=== PATIENT | male | born 1985 | race Caucasian/White ===

== ENCOUNTER 2017-09-04 17:29 | Emergency (ER) | payer BC ==
[2017-09-04] MEDS ORDERED: Lidocaine 1% 20 ML MDV INJECT ONE (17:53)
[2017-09-04] MEDS ORDERED: Diphtheria,Pertussis(Acell),Tetanus Vaccine 0.5 ML Syringe IM ONE (17:53)
--- NOTE | 2017-09-04 18:48 | EDM.PDOC ---
ED HPI GENERAL MEDICAL PROBLEM - General Chief Complaint: Laceration Stated Complaint: LACERATION LT HAND Time Seen by Provider: 09/04/17 17:40 Source of Information: Reports: Patient History Limitations: Reports: No Limitations - History of Present Illness INITIAL COMMENTS - FREE TEXT/NARRATIVE: HISTORY AND PHYSICAL: History of present illness: Patient is a 31-year-old male who presents to the emergency room today with complaints of laceration to the left hand. He was cleaning a fish with a knife when it slipped and caught the dorsal surface of the left hand. Unsure of his last tetanus update. Review of systems: As per history of present illness and below otherwise all systems reviewed and negative. Past medical history: As per history of present illness and as reviewed below otherwise noncontributory. Surgical history: As per history of present illness and as reviewed below otherwise noncontributory. Social history: No reported history of drug or alcohol abuse. Family history: As per history of present illness and as reviewed below otherwise noncontributory. Physical exam: General: Well-developed and well-nourished 31-year-old male. Alert and oriented. Nontoxic appearing and in no acute distress. HEENT: Atraumatic, normocephalic, pupils equal and reactive bilaterally, negative for conjunctival pallor or scleral icterus, mucous membranes moist, throat clear, neck supple, nontender, trachea midline. No drooling or trismus noted. No meningeal signs Lungs: Clear to auscultation, breath sounds equal bilaterally, chest nontender. Heart: S1S2, regular rate and rhythm without overt murmur Abdomen: Soft, nondistended, nontender. Negative for masses or hepatosplenomegaly. Negative for costovertebral tenderness. Pelvis: Stable nontender. Genitourinary: Deferred. Rectal: Deferred. Skin: 2 cm laceration to the dorsal surface of the left hand. Otherwise skin is intact, warm, dry. No lesions or rashes noted. Extremities: Atraumatic, negative for cords or calf pain. Neurovascular unremarkable. Neuro: Awake, alert, oriented. Cranial nerves II through XII unremarkable. Cerebellum unremarkable. Motor and sensory unremarkable throughout. Exam nonfocal. Notes: Patient declines the hand x-ray. The 2 cm laceration to left hand was cleansed with chlorhexidine and sterile water. 1% lidocaine was used to anesthetize the area. Sterile and customary procedures were done. 4-0 nylon, #7 interrupted sutures. Patient tolerated well. Due to the patient having working with fish and dirty knife I will place him on Keflex 500 mg twice a day 7 days. Supportive care measures were reviewed. Patient voices understanding and is agreeable to plan of care. He denies any further questions at this time. Diagnostics: [] Therapeutics: 1% lidocaine Impression: Laceration, left hand Plan: 1. Please keep the area clean and dry. Monitor for signs of infection. Take the antibiotic as prescribed. 2. Appears to be removed in 6-8 days. 3. Follow-up with your primary caregiver in the next 1-2 days. Return to the ED as needed and as discussed. Definitive disposition and diagnosis as appropriate pending reevaluation and review of above. - Related Data Allergies Allergy/AdvReac Type Severity Reaction Status Date / Time No Known Allergies Allergy Verified 09/04/17 17:51 Home Meds: Home Meds . [No Known Home Meds] 09/04/17 [History] Past Medical History - Past Health History Medical/Surgical History: Denies Medical/Surgical History Respiratory History: Reports: Asthma Gastrointestinal History: Reports: Hepatitis, Other (See Below) Other Gastrointestinal History: Completed treatment for hepatitis C, no longer positive - Infectious Disease History Infectious Disease History: Reports: Hepatitis C - Past Surgical History Musculoskeletal Surgical History: Reports: Other (See Below) Social & Family History - Family History Family Medical History: Noncontributory - Tobacco Use Smoking Status *Q: Never Smoker Second Hand Smoke Exposure: No - Caffeine Use Caffeine Use: Reports: Other - Recreational Drug Use Recreational Drug Use: No ED ROS GENERAL - Review of Systems Review Of Systems: ROS reveals no pertinent complaints other than HPI. ED EXAM, SKIN/RASH Exam: See Below (See Dictation) ED SKIN PROCEDURES - Laceration/Wound Repair Left Hand Lac/Wound length In cm: 2 Appearance: Subcutaneous, Linear Distal NVT: Neuro & Vascular Intact, No Tendon Injury Anesthetic Type: Local Local Anesthesia - Lidocaine (Xylocaine): 1% Plain Local Anesthetic Volume: 4cc Skin Prep: Chlorhexidine (Hibiciens), Saline Saline Irrigation (cc's): 20 Exploration/Debridement/Repair: Wound Explored, No Foreign Material Found Closed with: Sutures Suture Size: 4-0 # of Sutures: 7 Suture Type: Interrupted Sterile Dressing Applied: Provider Tetanus Status Addressed: Yes Complications: No Course - Vital Signs Last Recorded V/S: Last Vital Signs Temp 97.1 F 09/04/17 17:51 Pulse 97 09/04/17 17:51 Resp 18 09/04/17 17:51 BP 149/94 H 09/04/17 17:51 Pulse Ox 97 09/04/17 17:51 - Orders/Labs/Meds Orders: Active Orders 24 hr Category Date Time Status Vaccines to be Administered [RC] PER UNIT ROUTINE Care 09/04/17 17:53 Ordered Meds: Medications Discontinued Medications Generic Name Dose Route Start Last Admin Trade Name Freq PRN Reason Stop Dose Admin Diphtheria/Tetanus/Acell Pertussis 0.5 ml 09/04/17 17:53 09/04/17 18:09 Adacel IM 09/04/17 17:54 0.5 ml .ONCE ONE Administration Lidocaine HCl 20 ml 09/04/17 17:53 09/04/17 18:08 Xylocaine 1% INJECT 09/04/17 17:54 20 ml ONETIME ONE Administration Departure - Departure Time of Disposition: 18:48 Disposition: Home, Self-Care 01 Clinical Impression: Laceration - Discharge Information Instructions: Laceration Care, Adult, [id number] Referrals: PCP,None [Primary Care Provider] - Forms: ED Department Discharge Additional Instructions: The following information is given to patients seen in the emergency department who are being discharged to home. This information is to outline your options for follow-up care. We provide all patients seen in our emergency department with a follow-up referral. The need for follow-up, as well as the timing and circumstances, are variable depending upon the specifics of your emergency department visit. If you don't have a primary care physician on staff, we will provide you with a referral. We always advise you to contact your personal physician following an emergency department visit to inform them of the circumstance of the visit and for follow-up with them and/or the need for any referrals to a consulting specialist. The emergency department will also refer you to a specialist when appropriate. This referral assures that you have the opportunity for follow-up care with a specialist. All of these measure are taken in an effort to provide you with optimal care, which includes your follow-up. Under all circumstances we always encourage you to contact your private physician who remains a resource for coordinating your care. When calling for follow-up care, please make the office aware that this follow-up is from your recent emergency room visit. If for any reason you are refused follow-up, please contact the [facility] Emergency Department at and asked to speak to the emergency department charge nurse. [facility] [address] [place] [id number] 1. Please keep the area clean and dry. Monitor for signs of infection. Take the antibiotic as prescribed. 2. Appears to be removed in 6-8 days. 3. Follow-up with your primary caregiver in the next 1-2 days. Return to the ED as needed and as discussed. - My Orders Last 24 Hours: My Active Orders 09/04/17 17:53 Vaccines to be Administered [RC] PER UNIT ROUTINE - Assessment/Plan Last 24 Hours: My Active Orders 09/04/17 17:53 Vaccines to be Administered [RC] PER UNIT ROUTINE
[2017-09-04 18:59] VITALS: BP 143/91
== END 2017-09-04 18:57 | disposition home or self-care (01) ==
LOC: MW.ED 17:29
DX: S61.412A Laceration without foreign body of left hand, initial encounter (principal); J45.909 Unspecified asthma, uncomplicated; Z23 Encounter for immunization; W26.0XXA Contact with knife, initial encounter
CPT/HCPCS: 90471; 90715; 99283-25

== ENCOUNTER 2017-09-12 15:43 | Emergency (ER) | payer BC | END 2017-09-12 15:56 | disposition left against medical advice (07) | LOC: MW.ED 15:43 | DX: Z53.21 Procedure and treatment not carried out due to patient leaving prior to being seen by health care provider (principal) ==

== ENCOUNTER 2017-10-15 14:39 | Emergency (ER) | payer OTHER, BC ==
[2017-10-15 14:51] VITALS: BP 152/66
--- NOTE | 2017-10-15 14:57 | EDM.PDOC ---
ED HPI GENERAL MEDICAL PROBLEM - General Chief Complaint: Lower Extremity Injury/Pain Stated Complaint: LT LEG HURTS Time Seen by Provider: 10/15/17 14:50 - History of Present Illness INITIAL COMMENTS - FREE TEXT/NARRATIVE: HISTORY AND PHYSICAL: History of present illness: Patient presents status post injury to his left lower extremity 2 weeks prior with direct trauma he had a small abrasion nares had some swelling does not turn in the bruising inferiorly he denies other concern Review of systems: As per history of present illness and below otherwise all systems reviewed and negative. Past medical history: As per history of present illness and as reviewed below otherwise noncontributory. Surgical history: As per history of present illness and as reviewed below otherwise noncontributory. Social history: No reported history of drug or alcohol abuse. Family history: As per history of present illness and as reviewed below otherwise noncontributory. Physical exam: Extremities: Patient has a small central area of excoriation proximally 2 mm over the initial injury of his mid tibia left a small area of induration surrounding no erythema no warmth there's some small bruising noted inferior to this area. No cords pain CMS neurovascular is unremarkable Diagnostics: X-ray left tib-fib Therapeutics: None Impression: #1 left leg injury (blunt force trauma) 2 weeks status post Definitive disposition and diagnosis as appropriate pending reevaluation and review of above. Left Lower Leg Pain Score (Numeric/FACES): 4 - Related Data Allergies Allergy/AdvReac Type Severity Reaction Status Date / Time No Known Allergies Allergy Verified 10/15/17 14:51 Home Meds: Home Meds Albuterol [Ventolin HFA] 1 puff INH Q4HR PRN 10/15/17 [History] Beclomethasone Dipropionate [Qvar] 1 puff INH Q4HR PRN 10/15/17 [History] Past Medical History - Past Health History Medical/Surgical History: Denies Medical/Surgical History Respiratory History: Reports: Asthma Gastrointestinal History: Reports: Hepatitis, Other (See Below) Other Gastrointestinal History: Completed treatment for hepatitis C, no longer positive - Infectious Disease History Infectious Disease History: Reports: Hepatitis C - Past Surgical History Musculoskeletal Surgical History: Reports: Other (See Below) Social & Family History - Family History Family Medical History: Noncontributory - Caffeine Use Caffeine Use: Reports: Other Review of Systems - Review of Systems Review Of Systems: ROS reveals no pertinent complaints other than HPI. ED EXAM, GENERAL - Physical Exam Exam: See Below (See dictation) Course - Vital Signs Last Recorded V/S: Last Vital Signs Temp 36.4 C 10/15/17 14:47 Pulse 76 10/15/17 14:47 Resp 16 10/15/17 14:47 BP 152/66 H 10/15/17 14:47 Pulse Ox 94 L 10/15/17 14:47 Departure - Departure Time of Disposition: 14:56 Disposition: Home, Self-Care 01 Condition: Good Clinical Impression: Leg injury - Discharge Information Referrals: PCP,None [Primary Care Provider] - Additional Instructions: The following information is given to patients seen in the emergency department who are being discharged to home. This information is to outline your options for follow-up care. We provide all patients seen in our emergency department with a follow-up referral. The need for follow-up, as well as the timing and circumstances, are variable depending upon the specifics of your emergency department visit. If you don't have a primary care physician on staff, we will provide you with a referral. We always advise you to contact your personal physician following an emergency department visit to inform them of the circumstance of the visit and for follow-up with them and/or the need for any referrals to a consulting specialist. The emergency department will also refer you to a specialist when appropriate. This referral assures that you have the opportunity for followup care with a specialist. All of these measure are taken in an effort to provide you with optimal care, which includes your followup. Under all circumstances we always encourage you to contact your private physician who remains a resource for coordinating your care. When calling for followup care, please make the office aware that this follow-up is from your recent emergency room visit. If for any reason you are refused follow-up, please contact the [facility] emergency department at and asked to speak to the emergency department charge nurse. Follow-up primary medical doctor as needed as discussed return as needed as discussed Motrin/Tylenol as directed
--- NOTE | 2017-10-15 15:30 | CR ---
EXAMINATION: Left tibia and fibula HISTORY: Injury COMPARISON: None TECHNIQUE: 2 views FINDINGS/IMPRESSION: There is no acute osseous abnormality, dislocation, or fracture. Bone mineraliza tion and visualized joint spaces appear preserved. No soft tissue swelling or foreign body.
== END 2017-10-15 15:32 | disposition home or self-care (01) ==
LOC: MW.ED 14:39
DX: S80.812A Abrasion, left lower leg, initial encounter (principal); X58.XXXA Exposure to other specified factors, initial encounter
CPT/HCPCS: 73590-26-LT; 73590-LT; 99282; 99283

== ENCOUNTER 2017-10-29 18:39 | Emergency (ER) | payer OTHER, BC ==
--- NOTE | 2017-10-29 18:49 | EDM.PDOC ---
ED HPI GENERAL MEDICAL PROBLEM - General Chief Complaint: Skin Complaint Stated Complaint: SORE ON LEFT LEG- POSSIBLY INFECTED Time Seen by Provider: 10/29/17 18:46 Source of Information: Reports: Patient History Limitations: Reports: No Limitations - History of Present Illness INITIAL COMMENTS - FREE TEXT/NARRATIVE: HISTORY AND PHYSICAL: History of present illness: Patient is a 31-year-old male who presents to the emergency room today with complaints of localized infection to the right weems. He states he hit his leg approximately 2 weeks ago and did have an abrasion at that time. He was seen in the emergency room on 10/15/2017 and had an x-ray. He states since that time he has had a "scab" over the site. Today he scratched the top of the "scab off" and did express a moderate amount of purulent drainage from the site. He denies any fever, chills, chest pain, cough or shortness of breath. Denies any GI or symptoms. Review of systems: As per history of present illness and below otherwise all systems reviewed and negative. Past medical history: As per history of present illness and as reviewed below otherwise noncontributory. Surgical history: As per history of present illness and as reviewed below otherwise noncontributory. Social history: No reported history of drug or alcohol abuse. Family history: As per history of present illness and as reviewed below otherwise noncontributory. Physical exam: General: Well-developed and well-nourished 31-year-old male. Alert and oriented. Nontoxic appearing and in no acute distress. HEENT: Atraumatic, normocephalic, pupils equal and reactive bilaterally, negative for conjunctival pallor or scleral icterus, mucous membranes moist, throat clear, neck supple, nontender, trachea midline. No drooling or trismus noted. No meningeal signs Lungs: Clear to auscultation, breath sounds equal bilaterally, chest nontender. Heart: S1S2, regular rate and rhythm without overt murmur Abdomen: Soft, nondistended, nontender. Negative for masses or hepatosplenomegaly. Negative for costovertebral tenderness. Pelvis: Stable nontender. Genitourinary: Deferred. Rectal: Deferred. Skin: Small circular crepitus noted with purulent drainage coming from the site. Nonfluctuant. Mild erythema surrounding the scabbed site (approx .75cm in diameter). Otherwise skin is intact, warm, dry. No lesions or rashes noted. Extremities: Atraumatic, moves all extremities, negative for cords or calf pain. Neurovascular unremarkable. Neuro: Awake, alert, oriented. Cranial nerves II through XII unremarkable. Cerebellum unremarkable. Motor and sensory unremarkable throughout. Exam nonfocal. Notes: Patient did have an x-ray on 10/15/2017 which was normal. The scab site does appear mildly erythematous surrounding the border. Patient expresses great concern that he needs an antibiotic or "infection". We will place him on Keflex twice a day 10 days. Supportive care measures were reviewed and discussed. Diagnostics: [] Therapeutics: [] Impression: Cellulitis, right weems Plan: 1. Keep the area clean and dry. Rest, ice, elevate the affected extremity 2. Tylenol and/or ibuprofen as needed for pain management. Take your antibiotic as directed. 3. Follow-up with your primary care provider in the next 1-2 days. Return to the ED as needed and as discussed. Definitive disposition and diagnosis as appropriate pending reevaluation and review of above. - Related Data Allergies Allergy/AdvReac Type Severity Reaction Status Date / Time No Known Allergies Allergy Verified 10/29/17 19:18 Home Meds: Home Meds Albuterol [Ventolin HFA] 1 puff INH Q4HR PRN 10/15/17 [History] Beclomethasone Dipropionate [Qvar] 1 puff INH Q4HR PRN 10/15/17 [History] Past Medical History - Past Health History Medical/Surgical History: Denies Medical/Surgical History Respiratory History: Reports: Asthma Gastrointestinal History: Reports: Hepatitis, Other (See Below) Other Gastrointestinal History: Completed treatment for hepatitis C, no longer positive - Infectious Disease History Infectious Disease History: Reports: Hepatitis C - Past Surgical History Musculoskeletal Surgical History: Reports: Other (See Below) Social & Family History - Family History Family Medical History: Noncontributory - Caffeine Use Caffeine Use: Reports: Other ED ROS GENERAL - Review of Systems Review Of Systems: ROS reveals no pertinent complaints other than HPI. ED EXAM, SKIN/RASH Exam: See Below (See dictation) Course - Vital Signs Last Recorded V/S: Last Vital Signs Temp 97.7 F 10/29/17 19:00 Pulse 81 10/29/17 19:00 Resp 16 06/25/18 19:00 BP 133/74 10/29/17 19:00 Pulse Ox 96 10/29/17 19:00 Departure - Departure Time of Disposition: 19:45 Disposition: Home, Self-Care 01 Clinical Impression: Cellulitis Qualifiers: Site of cellulitis: extremity Site of cellulitis of extremity: lower extremity Laterality: left Qualified Code(s): L03.116 - Cellulitis of left lower limb - Discharge Information Instructions: Cellulitis, Adult, [id number] Referrals: Cedric Doe MD [Primary Care Provider] - Forms: ED Department Discharge Additional Instructions: The following information is given to patients seen in the emergency department who are being discharged to home. This information is to outline your options for follow-up care. We provide all patients seen in our emergency department with a follow-up referral. The need for follow-up, as well as the timing and circumstances, are variable depending upon the specifics of your emergency department visit. If you don't have a primary care physician on staff, we will provide you with a referral. We always advise you to contact your personal physician following an emergency department visit to inform them of the circumstance of the visit and for follow-up with them and/or the need for any referrals to a consulting specialist. The emergency department will also refer you to a specialist when appropriate. This referral assures that you have the opportunity for follow-up care with a specialist. All of these measure are taken in an effort to provide you with optimal care, which includes your follow-up. Under all circumstances we always encourage you to contact your private physician who remains a resource for coordinating your care. When calling for follow-up care, please make the office aware that this follow-up is from your recent emergency room visit. If for any reason you are refused follow-up, please contact the [facility] Emergency Department at and asked to speak to the emergency department charge nurse. [facility] [address] [place] [id number] 1. Keep the area clean and dry. Rest, ice, elevate the affected extremity 2. Tylenol and/or ibuprofen as needed for pain management. Take your antibiotic as directed. 3. Follow-up with your primary care provider in the next 1-2 days. Return to the ED as needed and as discussed. He
[2017-10-29 19:58] VITALS: BP 126/70
== END 2017-10-29 19:50 | disposition home or self-care (01) ==
LOC: MW.ED 18:39
DX: L03.115 Cellulitis of right lower limb (principal)
CPT/HCPCS: 99282

== ENCOUNTER 2018-01-01 09:57 | Emergency (ER) | payer OTHER, BC ==
--- NOTE | 2018-01-01 10:17 | EDM.PDOC ---
ED HPI GENERAL MEDICAL PROBLEM - General Chief Complaint: Laceration Stated Complaint: work related injury right chest Time Seen by Provider: 01/01/18 10:17 Source of Information: Reports: Patient History Limitations: Reports: No Limitations - History of Present Illness INITIAL COMMENTS - FREE TEXT/NARRATIVE: HISTORY AND PHYSICAL: History of present illness: Patient is a [id number] here with a work injury. Patient states that about 1 hour prior to arrival to the ED he pinched his right breast/skin between a metal slide hammer. He states it bled quit a bit but has since resolved. He is otherwise in his usual state of health and denies anticoagulant use, chest pain , SOB, cough, fever, nausea, vomiting, diarrhea. He is UTD on tetanus (September 2017) . Review of systems: As per history of present illness and below otherwise all systems reviewed and negative. Past medical history: As per history of present illness and as reviewed below otherwise noncontributory. Surgical history: As per history of present illness and as reviewed below otherwise noncontributory. Social history: No reported history of drug or alcohol abuse. Family history: As per history of present illness and as reviewed below otherwise noncontributory. Physical exam: General: Patient sitting comfortably in no acute distress and nontoxic appearing HEENT: Atraumatic, normocephalic, pupils reactive, negative for conjunctival pallor or scleral icterus, mucous membranes moist, throat clear, neck supple, nontender, trachea midline. No meningeal signs. Lungs: Clear to auscultation, breath sounds equal bilaterally, chest nontender. Heart: S1S2, regular, negative for clicks, rubs, or overt murmur. Skin: There is a quarter sized bruise/erythema to the right breast just lateral to the areola. There is a 1cm superfical laceration with maceration skin. Not amendable to sutures or dermabond. Extremities: Atraumatic, negative for cords or calf pain. Neurovascular unremarkable. Neuro: Awake, alert, oriented. Cranial nerves II through XII unremarkable. Cerebellum unremarkable. Motor and sensory unremarkable throughout. Exam nonfocal. Notes: Diagnostics: None Therapeutics: None Prescriptions: None Impression: Ecchymosis, skin maceration Plan: 1. Keep the area clean and dry as directed 2. Follow up with primary care provider 3. Return to ED as needed as discussed Definitive disposition and diagnosis as appropriate pending reevaluation and review of above. right Nipple Pain Score (Numeric/FACES): 4 - Related Data Allergies Allergy/AdvReac Type Severity Reaction Status Date / Time No Known Allergies Allergy Verified 01/01/18 10:13 Home Meds: Home Meds Albuterol [Ventolin HFA] 1 puff INH Q4HR PRN 10/15/17 [History] Beclomethasone Dipropionate [Qvar] 1 puff INH Q4HR PRN 10/15/17 [History] Past Medical History - Past Health History Medical/Surgical History: Denies Medical/Surgical History Respiratory History: Reports: Asthma Gastrointestinal History: Reports: Hepatitis, Other (See Below) Other Gastrointestinal History: Completed treatment for hepatitis C, no longer positive - Infectious Disease History Infectious Disease History: Reports: Hepatitis C - Past Surgical History Musculoskeletal Surgical History: Reports: Other (See Below) Social & Family History - Family History Family Medical History: Noncontributory - Caffeine Use Caffeine Use: Reports: Other ED ROS GENERAL - Review of Systems Review Of Systems: ROS reveals no pertinent complaints other than HPI. ED EXAM, SKIN/RASH Exam: See Below (see dictation) Course - Vital Signs Last Recorded V/S: Last Vital Signs Temp 36.6 C 01/01/18 10:14 Pulse 81 01/01/18 10:14 Resp 15 01/01/18 10:14 BP 150/73 H 01/01/18 10:14 Pulse Ox 96 01/01/18 10:14 Departure - Departure Time of Disposition: 10:32 Disposition: Home, Self-Care 01 Condition: Good Clinical Impression: Skin maceration, Ecchymosis - Discharge Information Referrals: Cedric Doe MD [Primary Care Provider] - Forms: ED Department Discharge Additional Instructions: The following information is given to patients seen in the emergency department who are being discharged to home. This information is to outline your options for follow-up care. We provide all patients seen in our emergency department with a follow-up referral. The need for follow-up, as well as the timing and circumstances, are variable depending upon the specifics of your emergency department visit. If you don't have a primary care physician on staff, we will provide you with a referral. We always advise you to contact your personal physician following an emergency department visit to inform them of the circumstance of the visit and for follow-up with them and/or the need for any referrals to a consulting specialist. The emergency department will also refer you to a specialist when appropriate. This referral assures that you have the opportunity for follow-up care with a specialist. All of these measure are taken in an effort to provide you with optimal care, which includes your follow-up. Under all circumstances we always encourage you to contact your private physician who remains a resource for coordinating your care. When calling for follow-up care, please make the office aware that this follow-up is from your recent emergency room visit. If for any reason you are refused follow-up, please contact the [facility] Emergency Department at and asked to speak to the emergency department charge nurse. [facility] [address] [place] [id number] [id number] 1. Keep the area clean and dry as directed 2. Follow up with primary care provider 3. Return to ED as needed as discussed
[2018-01-01] MEDS ORDERED: Bacitracin Oint 28.35 GM Tube TOP ONE (10:30)
[2018-01-01 10:42] VITALS: BP 150/81
== END 2018-01-01 10:41 | disposition home or self-care (01) ==
LOC: MW.ED 09:57
DX: S21.011A Laceration without foreign body of right breast, initial encounter (principal); W23.1XXA Caught, crushed, jammed, or pinched between stationary objects, initial encounter
CPT/HCPCS: 99283

== ENCOUNTER 2018-08-10 10:20 | Emergency (ER) | payer BC, OTHER ==
--- NOTE | 2018-08-10 10:40 | EDM.PDOC ---
ED HPI GENERAL MEDICAL PROBLEM - General Chief Complaint: Back Pain or Injury Stated Complaint: BACK AND NECK PAIN Time Seen by Provider: 08/10/18 10:23 Source of Information: Reports: Patient History Limitations: Reports: No Limitations - History of Present Illness INITIAL COMMENTS - FREE TEXT/NARRATIVE: History of present illness: []Patient was swinging a sledgehammer, using a jackhammer and was hit by the [place] of a forklift his head 4 days ago complaining of midline neck pain. Taking tramadol from an old hip injury that has not been helping. Patient denies any matting, numbness or tingling or any other injuries. Review of systems: As per history of present illness and below otherwise all systems reviewed and negative. Past medical history: As per history of present illness and as reviewed below otherwise noncontributory. Surgical history: As per history of present illness and as reviewed below otherwise noncontributory. Social history: No reported history of drug or alcohol abuse. Family history: As per history of present illness and as reviewed below otherwise noncontributory. Physical exam: General: Well developed, well nourished in NAD HEENT: Atraumatic, normocephalic, pupils reactive, negative for conjunctival pallor or scleral icterus, mucous membranes moist, throat clear, neck supple, nontender, trachea midline. Lungs: Clear to auscultation, breath sounds equal bilaterally, chest nontender. Heart: S1S2, regular, negative for clicks, rubs, or JVD. Abdomen: NABS, Soft, nondistended, nontender. Negative for masses or hepatosplenomegaly. Negative for costovertebral tenderness. Pelvis: Stable nontender. Genitourinary: Deferred. Rectal: Deferred. Extremities: Atraumatic, negative for cords or calf pain. Neurovascular unremarkable. Neuro: Awake, alert, oriented. Cranial nerves II through XII unremarkable. Cerebellum unremarkable. Motor and sensory unremarkable throughout. Exam nonfocal. Skin:warm and dry Diagnostics: CT cervical spine without contrast Therapeutics: Declined pain meds ED Course: Stable Impression: Cervical strain Prescriptions: flexeril Plan: Take meds as directed, follow up with your primary care physician, return to ER if symptoms worsen or change. Definitive disposition and diagnosis as appropriate pending reevaluation and review of above. Neck/back Pain Score (Numeric/FACES): 8 - Related Data Allergies Allergy/AdvReac Type Severity Reaction Status Date / Time No Known Allergies Allergy Verified 08/10/18 10:45 Home Meds: Home Meds Albuterol [Ventolin HFA] 1 puff INH Q4HR PRN 10/15/17 [History] Cyclobenzaprine [Flexeril] 10 mg PO BID PRN #12 tab 08/10/18 [Rx] Zolpidem [Ambien] 5 mg PO ASDIRECTED PRN 08/10/18 [History] traMADol [Ultram] 50 mg PO ASDIRECTED PRN 08/10/18 [History] Past Medical History - Past Health History Medical/Surgical History: Denies Medical/Surgical History HEENT History: Reports: None Cardiovascular History: Reports: None Respiratory History: Reports: Asthma Gastrointestinal History: Reports: Hepatitis, Other (See Below) Other Gastrointestinal History: Completed treatment for hepatitis C, no longer positive Genitourinary History: Reports: None Musculoskeletal History: Reports: None Neurological History: Reports: None Psychiatric History: Reports: None Endocrine/Metabolic History: Reports: None Oncologic (Cancer) History: Reports: None Dermatologic History: Reports: None - Infectious Disease History Infectious Disease History: Reports: Hepatitis C - Past Surgical History Musculoskeletal Surgical History: Reports: Other (See Below) Social & Family History - Family History Family Medical History: Noncontributory - Caffeine Use Caffeine Use: Reports: Other ED ROS GENERAL - Review of Systems Review Of Systems: ROS reveals no pertinent complaints other than HPI. ED EXAM, UPPER BACK/NECK PAIN - Physical Exam Exam: See Below (See history of present illness) Course - Vital Signs Last Recorded V/S: Last Vital Signs Temp 98.6 F 08/10/18 10:48 Pulse 64 08/10/18 10:48 Resp 18 08/10/18 10:48 BP 143/54 H 08/10/18 10:48 Pulse Ox 96 08/10/18 10:48 Departure - Departure Time of Disposition: 11:38 Disposition: Home, Self-Care 01 Condition: Good Clinical Impression: Cervical strain Qualifiers: Encounter type: initial encounter Qualified Code(s): S16.1XXA - Strain of muscle, fascia and tendon at neck level, initial encounter - Discharge Information *PRESCRIPTION DRUG MONITORING PROGRAM REVIEWED*: No *COPY OF PRESCRIPTION DRUG MONITORING REPORT IN PATIENT NAUN: No Prescriptions: Cyclobenzaprine [Flexeril] 10 mg PO BID PRN #12 tab PRN Reason: Pain Instructions: Musculoskeletal Pain Referrals: Cedric Doe MD [Primary Care Provider] - Forms: ED Department Discharge Additional Instructions: The following information is given to patients seen in the emergency department who are being discharged to home. This information is to outline your options for follow-up care. We provide all patients seen in our emergency department with a follow-up referral. The need for follow-up, as well as the timing and circumstances, are variable depending upon the specifics of your emergency department visit. If you don't have a primary care physician on staff, we will provide you with a referral. We always advise you to contact your personal physician following an emergency department visit to inform them of the circumstance of the visit and for follow-up with them and/or the need for any referrals to a consulting specialist. The emergency department will also refer you to a specialist when appropriate. This referral assures that you have the opportunity for follow-up care with a specialist. All of these measure are taken in an effort to provide you with optimal care, which includes your follow-up. Under all circumstances we always encourage you to contact your private physician who remains a resource for coordinating your care. When calling for follow-up care, please make the office aware that this follow-up is from your recent emergency room visit. If for any reason you are refused follow-up, please contact the [facility] Emergency Department at and asked to speak to the emergency department charge nurse. Take meds as directed, follow up with your primary care physician, return to ER if symptoms worsen or change. [facility] [address] [place] [id number]
--- NOTE | 2018-08-10 11:26 | CT ---
INDICATION : Trauma. TECHNIQUE : CT scan of the cervical spine. Bone and soft tissue windows with sagittal and coronal reconstructions. FINDINGS : No significant fracture. No significant subluxation. No abnormal soft tissue mass lesions. No significant lesions are visualized within included lung whitfield. Incidental 7 millimeter calcification is seen in the right submandibular gland axial image 115 IMPRESSION : Negative for acute fracture or subluxation. Incidental right submandibular gland calcification Please note that all CT scans at this facility use dose modulation, iterative reconstruction, and/or weight-based dosing when appropriate to reduce radiation dose to as low as reasonably achievable. Dictated by Mundo Estrada MD @ Aug 10 2018 11:19AM Signed by Dr. Mundo Estrada @ Aug 10 2018 11:25AM
[2018-08-10 11:50] VITALS: BP 136/78
== END 2018-08-10 11:48 | disposition home or self-care (01) ==
LOC: MW.ED 10:20
DX: S16.1XXA Strain of muscle, fascia and tendon at neck level, initial encounter (principal); W22.8XXA Striking against or struck by other objects, initial encounter
CPT/HCPCS: 72125; 72125-26; 99283-25

== ENCOUNTER 2020-05-01 02:27 | Emergency (ER) | payer OTHER, BC ==
--- NOTE | 2020-05-01 02:28 | EDM.PDOC ---
ED HPI GENERAL MEDICAL PROBLEM - General Stated Complaint: POSSIBLE BROKEN KNUCKLE- LEFT HAND Time Seen by Provider: 05/01/20 02:28 Source of Information: Reports: Patient History Limitations: Reports: No Limitations - History of Present Illness INITIAL COMMENTS - FREE TEXT/NARRATIVE: 34-year-old male past medical history depression, anxiety presents for left hand injury. Patient works with heavy machinery and had his hand in a machine that twisted/crushed his left first knuckle. He notes pain and swelling to the area. He denies any loss of sensation, no bleeding. No other injuries reported. Left Hand Pain Score (Numeric/FACES): 5 - Related Data Allergies Allergy/AdvReac Type Severity Reaction Status Date / Time No Known Allergies Allergy Verified 05/01/20 02:42 Home Meds: Home Meds Zolpidem [Ambien] 5 mg PO ASDIRECTED PRN 08/10/18 [History] Escitalopram [Lexapro] 05/01/20 [History] Past Medical History - Past Health History Medical/Surgical History: Denies Medical/Surgical History HEENT History: Reports: None Cardiovascular History: Reports: None Respiratory History: Reports: Asthma Gastrointestinal History: Reports: Hepatitis, Other (See Below) Other Gastrointestinal History: Completed treatment for hepatitis C, no longer positive Genitourinary History: Reports: None Musculoskeletal History: Reports: None Neurological History: Reports: None Psychiatric History: Reports: None Endocrine/Metabolic History: Reports: None Oncologic (Cancer) History: Reports: None Dermatologic History: Reports: None - Infectious Disease History Infectious Disease History: Reports: Hepatitis C - Past Surgical History Musculoskeletal Surgical History: Reports: Other (See Below) Social & Family History - Family History Family Medical History: No Pertinent Family History - Caffeine Use Caffeine Use: Reports: Other ED ROS GENERAL - Review of Systems Review Of Systems: Comprehensive ROS is negative, except as noted in HPI. ED EXAM, GENERAL - Physical Exam Exam: See Below Exam Limited By: No Limitations General Appearance: Alert, WD/WN, No Apparent Distress Throat/Mouth: Normal Voice, No Airway Compromise Head: Atraumatic, Normocephalic Neck: Normal Inspection Respiratory/Chest: No Respiratory Distress, No Accessory Muscle Use Cardiovascular: Normal Peripheral Pulses Extremities: Other (Mild swelling to dorsum of left hand about the second PIP joint, no snuffbox tenderness to palpation, preserved sensation, normal capillary refill, preserved range of motion) Neurological: Alert Psychiatric: Normal Affect, Normal Mood Skin Exam: Warm, Dry, Intact, Normal Color Course - Vital Signs Last Recorded V/S: Last Vital Signs Temp 96.3 F L 05/01/20 02:30 Pulse 68 05/01/20 02:30 Resp 18 05/01/20 02:30 BP 132/73 05/01/20 02:30 Pulse Ox 97 05/01/20 02:30 - Re-Assessments/Exams Free Text/Narrative Re-Assessment/Exam: 05/01/20 02:38 We will get x-ray imaging of the left hand to rule out fracture versus dislocation. We will follow up results and disposition accordingly. 05/01/20 03:21 X-rays unremarkable. No evidence of fracture or dislocation. Will discharge patient with follow-up occupational health. Departure - Departure Time of Disposition: 03:21 Disposition: Home, Self-Care 01 Condition: Good Clinical Impression: Hand crush injury Qualifiers: Encounter type: initial encounter Laterality: left Qualified Code(s): S67.22XA - Crushing injury of left hand, initial encounter - Discharge Information Instructions: Crush Injury of the Hand Referrals: Cedric Doe MD [Primary Care Provider] - Additional Instructions: The following information is given to patients seen in the emergency department who are being discharged to home. This information is to outline your options for follow-up care. We provide all patients seen in our emergency department with a follow-up referral. The need for follow-up, as well as the timing and circumstances, are variable depending upon the specifics of your emergency department visit. If you don't have a primary care physician on staff, we will provide you with a referral. We always advise you to contact your personal physician following an emergency department visit to inform them of the circumstance of the visit and for follow-up with them and/or the need for any referrals to a consulting specialist. The emergency department will also refer you to a specialist when appropriate. This referral assures that you have the opportunity for follow-up care with a specialist. All of these measure are taken in an effort to provide you with optimal care, which includes your follow-up. Under all circumstances we always encourage you to contact your private physician who remains a resource for coordinating your care. When calling for follow-up care, please make the office aware that this follow-up is from your recent emergency room visit. If for any reason you are refused follow-up, please contact the [facility] Emergency Department at and asked to speak to the emergency department charge nurse. Please follow up with your primary care physician. If you do not have a primary care physician, see below: [facility] [address] [place] [id number] [facility] [address] [place] [id number] Sepsis Event Note (ED) - Focused Exam Vital Signs: Vital Signs Temp Pulse Resp BP Pulse Ox 05/01/20 02:30 96.3 F L 68 18 132/73 97
--- NOTE | 2020-05-01 03:20 | CR ---
Indication: Trauma, pain and 2nd MCP joint Technique: Three views of the left hand Comparison: None Findings: No fracture is demonstrated. The joints are anatomically aligned. There is no significant soft tissue edema. Impression: No acute abnormality. Dictated by Kevyn Gomez MD @ May 01 2020 3:18AM Signed by Dr. Kevyn Gomez @ May 01 2020 3:19AM
[2020-05-01 03:33] VITALS: BP 140/85; PULSE 71
== END 2020-05-01 03:25 | disposition home or self-care (01) ==
LOC: MW.ED 02:27
DX: S67.22XA Crushing injury of left hand, initial encounter (principal); J45.909 Unspecified asthma, uncomplicated; W23.0XXA Caught, crushed, jammed, or pinched between moving objects, initial encounter
CPT/HCPCS: 73130-26-LT; 73130-LT; 99283; 99283-25

== ENCOUNTER 2021-09-03 12:47 | Emergency (ER) | payer OTHER, BC ==
[2021-09-03] MEDS ORDERED: Ketorolac 60 MG/2 ML SDV IM ONE (13:02)
[2021-09-03 14:38] VITALS: BP 140/68; PULSE 71
== END 2021-09-03 14:35 | disposition home or self-care (01) ==
LOC: MW.ED 12:47
DX: S49.91XA Unspecified injury of right shoulder and upper arm, initial encounter (principal); J45.909 Unspecified asthma, uncomplicated; Z79.899 Other long term (current) drug therapy; X50.1XXA Overexertion from prolonged static or awkward postures, initial encounter; Y99.0 Civilian activity done for income or pay
CPT/HCPCS: 73060; 96372; 99283; J1885

== ENCOUNTER 2022-05-05 23:48 | Emergency (ER) | payer BC, OTHER ==
[2022-05-06 00:12] VITALS: BP 149/88
[2022-05-06 00:50] LABS: CORONAVIRUS COVID-19 NAA NEGATIVE (NEGATIVE); INFLUENZA A NAA NEGATIVE (NEGATIVE); INFLUENZA B NAA NEGATIVE (NEGATIVE); RESPIRATORY SYNCYTIAL VIR NAA NEGATIVE (NEGATIVE)
[2022-05-06] MEDS ORDERED: Ibuprofen 600 MG Tab PO ONE (00:57)
[2022-05-06] MEDS ORDERED: Acetaminophen 325 MG Tab PO ONE (00:57)
[2022-05-06] MEDS ORDERED: cefTRIAXone 1 GM Vial IM ONE (00:57)
[2022-05-06] MEDS ORDERED: Azithromycin 250 MG Tab PO STA (01:00)
[2022-05-06] MEDS ORDERED: Ondansetron 4 MG Tab.DIS PO ONE (01:00)
[2022-05-06 03:02] VITALS: PULSE 78
== END 2022-05-06 02:05 | disposition home or self-care (01) ==
LOC: MW.ED 23:48
DX: J18.9 Pneumonia, unspecified organism (principal); Z20.822 Contact with and (suspected) exposure to COVID-19
CPT/HCPCS: 0241U; 71046; 96372; 99283; A9270; J0696

== ENCOUNTER 2022-06-19 20:43 | Emergency (ER) | payer OTHER, BC ==
[2022-06-19 21:12] VITALS: BP 145/82; PULSE 79
== END 2022-06-19 22:01 | disposition home or self-care (01) ==
LOC: MW.ED 20:43
DX: S59.902A Unspecified injury of left elbow, initial encounter (principal); X50.0XXA Overexertion from strenuous movement or load, initial encounter
CPT/HCPCS: 73080-26-LT; 73080-LT; 99283

== ENCOUNTER 2024-02-20 15:25 | Emergency (ER) | payer BC ==
[2024-02-20 16:39] VITALS: BP 161/83
[2024-02-20 18:09] VITALS: PULSE 58
== END 2024-02-20 18:09 | disposition home or self-care (01) ==
LOC: MW.ED 15:25
DX: M79.675 Pain in left toe(s) (principal); J45.909 Unspecified asthma, uncomplicated; Z75.8 Other problems related to medical facilities and other health care
CPT/HCPCS: 73630-26-LT; 73630-LT; 99283